=== PATIENT | female | born 1930 | race Caucasian/White ===

== ENCOUNTER 2018-03-29 10:58 | Inpatient (IN) ==
--- NOTE | 2018-03-29 11:28 | Emergency Department Note ---
Disposition Clinical Impression: Heart murmur, Hypoxia CHF (congestive heart failure) Qualifiers: Heart failure type: unspecified Heart failure chronicity: unspecified Qualified Code(s): I50.9 - Heart failure, unspecified Disposition: Admitted As Inpatient Condition: Fair Forms: ED Satisfaction Letter General Adult HPI - General Chief complaint: ED Shortness of Breath/Dyspnea Stated complaint: SOB Time Seen by Provider: 03/29/18 11:02 Source: patient Mode of arrival: ambulatory Limitations: no limitations Nursing Notes Reviewed: Yes Vital Signs Reviewed: Yes - History of Present Illness HPI Narrative: Patient presents today via EMS from PCP office with a past medical history of atrial fibrillation on Coumadin as well as hypertension. The patient had a syncopal event yesterday during her birthday republican. The patient has had a cough as well as shortness of breatH. She has been treated for the last month for a left upper lobe pneumonia. She has been on azithromycin and finished this antibiotic approximately 10 days ago. The patient states that her INR did change secondary to the levels but is unsure how much. The patient has a mixed clinical picture at this time as she does have Rales with associated hypoxia 75 % PCP office. Patient does not have any significant swelling in her legs orthopnea. She has not had fevers. She has not had productive cough. Patient does have a significant heart murmur best described as a systolic heart murmur that is +4 best heard at the aortic post. Patient will undergo further evaluation for dyspnea including both pneumonia with a lactate and blood cultures as well as possible CHF. Patient is receiving a head CT secondary to fall and mild ecchymosis on the forehead. She has not had any abdominal symptoms, nausea, vomiting, change in appetite. She is requiring 2 L nasal cannula to keep her oxygen at 90%. She will be admitted for further evaluation of dyspnea as well as syncope. - Related Data Home Medications Medication Instructions Recorded Confirmed Ascorbic Acid [Vitamin C with Danielle 500 mg PO DAILY 03/29/18 03/29/18 Hips] Aspirin [Lo-Dose Aspirin EC] 81 mg PO DAILY 03/29/18 03/29/18 Calcium Carbonate/Vitamin D3 1 tab PO BID 03/29/18 03/29/18 [Calcium 600-Vit D3 400 Tablet] Esomeprazole Magnesium [Nexium] 40 mg PO DAILY 03/29/18 03/29/18 Losartan [Cozaar] 25 mg PO DAILY 03/29/18 03/29/18 Metoprolol Tartrate [Metoprolol 25 mg PO BID 03/29/18 03/29/18 Tartrate] Multivit-Min/FA/Lycopen/Lutein [A 1 tab PO DAILY 03/29/18 03/29/18 Thru Z Select Multivit Tab] Nitroglycerin 0.3 mg SL Q5MIN PRN 03/29/18 03/29/18 Ondansetron [Zofran] 8 mg PO TID 03/29/18 03/29/18 Pramipexole [Mirapex] 0.5 mg PO HS 03/29/18 03/29/18 Warfarin Sodium [Warfarin Sodium] 1 mg PO MOTUWETH 03/29/18 03/29/18 Warfarin Sodium [Warfarin Sodium] 2.5 mg PO SUFRSA 03/29/18 03/29/18 amLODIPine [Norvasc] 5 mg PO DAILY 03/29/18 03/29/18 Allergies Allergy/AdvReac Type Severity Reaction Status Date / Time benzocaine Allergy Difficulty Verified 03/29/18 12:34 Breathing Procaine [From Novocain] Allergy Difficulty Verified 03/29/18 12:35 Breathing Review of Systems: Constitutional: No fever, chills, weight loss Vision: No blurred vision ENT: No rhinorrhea Cardiac: Syncope, denies chest pain Respiratory: Hypoxia with associated dyspnea and cough without productive sputum Allergic: No allergies : No blood in urine GI: No blood in stool Hematologic: No bruising Dermatologic: Ecchymosis to right forehead from fall Musculoskeletal: No pain in the extremities Neuro: Syncope, denies headache. No numbness of the extremities Past Medical History - Past Medical History Medical history: Reports: atrial fibrillation, hypertension, myocardial infarction, osteoporosis, renal disease, other Psychiatric history: Reports: no psych history - Social History Smoking Status: Never smoker Smokeless Tobacco Status: No Alcohol use: Reports: none Drug use: Reports: none Physical Exam General: Well appearing, nontoxic, no acute distress Head: Normocephalic Atraumatic Eyes: PERRL, EOMI ENT: Airway patent, no stridor Neck: supple, no meningismus Chest: Diffuse rales Cardiac: Irregular rate and rhythm with significant heart murmur at the aortic post that is 4 out of 6. Abdomen: soft, nontender, nondistended; no guarding, rebound, or tenderness to percussion Musculoskeletal: Calves symmetric, nontender, no palpable cord Skin: Mild ecchymosis to right forehead- Neuro: Alert and Oriented to person, place, and time; No focal deficit, CN 2-12 symmetric and intact Course - Reevaluation(s) Reevaluation #1: A rapid response was called and patient was she was in CAT scan. Patient's oxygen canister ran out she had an episode of syncopal. The patient had responded after being placed on oxygen. On my evaluation in the CAT scan room she is awake alert and oriented 3 and back to baseline. Reevaluation #2: Patient reevaluated bedside, she is sleepy but wakes up to physical stimulation and is able to tell me her name and where she is at. Family is at bedside and states that she has been sleeping like this a lot. The patient has not been sleeping very well at night which is likely secondary to her hypoxia. Her blood work does not show any significant changes from baseline, there is no elevated white count, there is no acute kidney injury, her BNP is slightly elevated but there is no baseline to compare to. Patient does have the significant heart murmur at the aortic post in combination with the syncope. The chest x-ray does not show any significant finding secondary to low lung volumes. There is no specific pneumothorax or redemonstration of pneumonia or effusion. Her images to previous the left lower lobe infiltrate does appear to have resolved but she does have concern for pulmonary vascular congestion. Dose of Lasix has been given within the emergency department. He dose of 20 mg IV for gentle diuresis given the heart murmur and no significant respiratory distress on 2 L. Vital Signs Temperature 97.7 F 03/29/18 11:09 Pulse Rate 57 03/29/18 11:09 Respiratory Rate 18 03/29/18 11:09 Blood Pressure 123/74 03/29/18 11:09 O2 Sat by Pulse Oximetry 98 03/29/18 11:09 Temperature 97.7 F 03/29/18 11:09 Pulse Rate 60 03/29/18 13:23 Respiratory Rate 14 03/29/18 13:23 Blood Pressure 115/44 03/29/18 13:23 O2 Sat by Pulse Oximetry 100 03/29/18 13:23 Oxygen Delivery Oxygen Delivery Nasal Cannula Medical Decision Making - Medical Records Medical records reviewed: Yes I reviewed the patient's medical records. - Lab Data Lab results reviewed: Yes I reviewed the patient's lab results. Result diagrams: 03/29/18 11:15 03/29/18 11:15 Lab Results 03/29/18 03/29/18 03/29/18 Range/Units 11:15 11:15 11:15 WBC 6.8 (4.3-11.1) K/mcL RBC 3.37 L (3.82-4.97) M/mcL Hgb 9.1 L (11.5-15.4) g/dL Hct 30.8 L (35.3-44.9) % MCV 91.4 (83.0-100.0) fL MCH 27.0 L (28.0-33.3) pg MCHC 29.5 L (31.6-35.5) g/dL RDW 17.3 H (11.5-14.5) % Plt Count 162 (140-400) K/mcL MPV 12.3 (9.4-12.4) fL Immature Gran % 0.4 (0-4) % Seg Neutrophils % 87.5 % Lymphocytes % 6.2 % Monocytes % 5.5 % Eosinophils % 0.4 % Basophils % 0.0 % Neutrophils # 5.9 (1.6-8.9) K/mcL Lymphocytes # 0.4 L (0.6-4.6) K/mcL Monocytes # 0.4 (0.0-1.3) K/mcL Eosinophils # 0.0 (0.0-0.6) K/mcL Basophils # 0.0 (0.0-0.2) K/mcL PT 37.8 H (9.4-12.1) Seconds INR 3.4 Sodium 138 (136-145) mEq/L Potassium 4.9 (3.5-5.1) mEq/L Chloride 109 H (98-107) mEq/L Carbon Dioxide 21 L (23-29) mEq/L BUN 41 H (8-23) mg/dL Creatinine 2.26 H (0.60-1.20) mg/dL Est GFR ( Amer) 25 L (> 60) Est GFR (Non-Af Amer) 20 L (> 60) BUN/Creatinine Ratio 18 (6-26) Glucose 116 H (70-105) mg/dL Calculated Osmolality 297 (280-300) Lactic Acid (0.5-2.2) mmol/L Calcium 9.2 (8.6-10.3) mg/dL Troponin I 0.03 (< 0.04) ng/mL B-Natriuretic Peptide (Less than 100) pg/mL 03/29/18 03/29/18 Range/Units 11:16 12:27 WBC (4.3-11.1) K/mcL RBC (3.82-4.97) M/mcL Hgb (11.5-15.4) g/dL Hct (35.3-44.9) % MCV (83.0-100.0) fL MCH (28.0-33.3) pg MCHC (31.6-35.5) g/dL RDW (11.5-14.5) % Plt Count (140-400) K/mcL MPV (9.4-12.4) fL Immature Gran % (0-4) % Seg Neutrophils % % Lymphocytes % % Monocytes % % Eosinophils % % Basophils % % Neutrophils # (1.6-8.9) K/mcL Lymphocytes # (0.6-4.6) K/mcL Monocytes # (0.0-1.3) K/mcL Eosinophils # (0.0-0.6) K/mcL Basophils # (0.0-0.2) K/mcL PT (9.4-12.1) Seconds INR Sodium (136-145) mEq/L Potassium (3.5-5.1) mEq/L Chloride (98-107) mEq/L Carbon Dioxide (23-29) mEq/L BUN (8-23) mg/dL Creatinine (0.60-1.20) mg/dL Est GFR ( Amer) (> 60) Est GFR (Non-Af Amer) (> 60) BUN/Creatinine Ratio (6-26) Glucose (70-105) mg/dL Calculated Osmolality (280-300) Lactic Acid 0.9 (0.5-2.2) mmol/L Calcium (8.6-10.3) mg/dL Troponin I (< 0.04) ng/mL B-Natriuretic Peptide 722 H (Less than 100) pg/mL - Radiology Data Radiology results reviewed: Yes I reviewed the patient's radiology results. - EKG Data EKG #1 EKG attestation: Yes I reviewed and interpreted this EKG. EKG results narrative: EKG shows atrial fibrillation with a heart rate of 52. QRS 89. QTC 398. Patient has no significant ST elevations or depressions. Patient does have nonspecific T-wave changes which are new in the inferior leads compared to previous however previous T-wave inversions have also now become more flat throughout the lateral leads. Previous EKG for comparison was 08/01/2009.
[2018-03-29 12:57] LABS: Eosinophils % 0.4 %; Hematocrit 30.8 % (35.3-44.9); Hemoglobin 9.1 g/dL (11.5-15.4); Immature Granulocytes % 0.4 % (0-4); Lymphocytes # 0.4 K/mcL (0.6-4.6); Lymphocytes % 6.2 %; Mean Corpuscular HGB Conc 29.5 g/dL (31.6-35.5); Mean Corpuscular Volume 91.4 fL (83.0-100.0); Mean Platelet Volume 12.3 fL (9.4-12.4); Monocytes # 0.4 K/mcL (0.0-1.3); Monocytes % 5.5 %; Neutrophils # 5.9 K/mcL (1.6-8.9); Platelet Count 162 K/mcL (140-400); Red Blood Count 3.37 M/mcL (3.82-4.97); Red Cell Distribution Width 17.3 % (11.5-14.5); Segmented Neutrophils % 87.5 %
[2018-03-29 13:05] LABS: INR 3.4; Prothrombin Time 37.8 Seconds (9.4-12.1)
[2018-03-29 13:18] LABS: Troponin I 0.03 ng/mL (< 0.04)
[2018-03-29 13:29] LABS: Calcium 9.2 mg/dL (8.6-10.3); Potassium 4.9 mEq/L (3.5-5.1)
[2018-03-29] MEDS ORDERED: Furosemide 40 MG/4 ML VIAL IVP ONE ×2 (13:56→21:00)
--- NOTE | 2018-03-29 15:10 | Electrocardiograph Report ---
[place] [id number] Test Date: 2018-03-29 Pat Name: [facility] Department: [id number] Room: 2A42 Gender: F [employer] Sales [employer]: : [id number] Requested By: [id number] Order Number: [id number] Reading MD: Ade Maldonado Measurements Intervals [place] Rate: 52 P: [place]: QRS: -9 QRSD: 89 T: 206 QT: 428 QTc: 398 Interpretive Statements Atrial fibrillation with slow ventricular response Nonspecific T abnormalities, diffuse leads Electronically Signed On 03-29-2018 15:09:03 EDT by Ade Maldonado
[2018-03-29] MEDS ORDERED: Furosemide Oral Soln 40 MG/4 ML UDC PO SCH (15:30)
[2018-03-29] MEDS ORDERED: Furosemide Oral Soln 40 MG/4 ML UDC PO ONE (15:30)
[2018-03-29] MEDS ORDERED: Naloxone 0.4 MG/ML INJ IVP PRN (16:14)
[2018-03-29] MEDS ORDERED: Ondansetron 4 MG/2 ML VIAL IVP PRN (16:41)
[2018-03-29] MEDS ORDERED: Warfarin perPT PO PRN (16:45)
--- NOTE | 2018-03-29 17:35 | Internal Med History&Physical ---
<Nahed Sanchez - Last Filed: 03/29/18 17:33> Date of Encounter: 03/29/18 Time of Encounter: 15:00 Internal Medicine - H&P: HPI Chief complaint: hypoxia, syncope History of present illness: Ms. Ordoñez is a 88 year old female with past medical history of A-fib on Coumadin, HTN, [place] in 2002, renal disease, and osteoporosis. The patient presents for hypoxia and syncope. The family states that the patient has been having episodes of difficulty breathing for 1 week that has progressively gotten worse. Reports the episodes are triggered by talking. The patient gasps for air, snores, and becomes incoherent with slurred speech for about 30 seconds. The patient will repeated say Im ok, Im ok in a slurred fashion and gradually becomes perfectly articulate again. Yesterday, patient had a syncopal episode witnessed by family at patients birthday republican. Patient stood up from a seated position to go to bathroom and lost consciousness for 30 seconds. She hit her head and nose. Today, at visit to PCP, she had another episode of gasping for air and nearly passed out. Pulse ox was 75% and the patient was transferred to the ER by EMS. In ER, patient was 90% on 2L oxygen. Other vital signs stable. While getting head CT for workup, patient had syncopal episode after oxygen canister ran out. Patient returned to normal after O2 administration. Patient was recently treated for REBECCA pneumonia with azithromycin for 5 days. Completed antibiotic course 10 days ago. Patient states shes tired and sleepy. Explains that she could not sleep last night. Family states shes still slurring her speech and that shes usually very articulate. Admits dry cough for few months that has stayed the same. Admits weakness for 1 month. Denies swelling. Denies orthopnea. Denies chest pain. Denies fever/ chills. Denies nausea/vomiting. Denies change in appetite. Past Med Surg Social Fam HX - Past Medical History Medical history: atrial fibrillation, hypertension, myocardial infarction, osteoporosis, renal disease, other Additional medical history: restless leg syndrome Psychiatric history: no psych history - Social History Smoking Status: Never smoker Smokeless Tobacco Status: No Alcohol use: none Drug use: none Internal Medicine - H&P: Meds Ascorbic Acid [Vitamin C with Danielle Hips] 500 mg PO DAILY 03/29/18 [History] Aspirin [Lo-Dose Aspirin EC] 81 mg PO DAILY 03/29/18 [History] Calcium Carbonate/Vitamin D3 [Calcium 600-Vit D3 400 Tablet] 1 tab PO BID [History] Esomeprazole Magnesium [Nexium] 40 mg PO DAILY 03/29/18 [History] Losartan [Cozaar] 25 mg PO DAILY 03/29/18 [History] Metoprolol Tartrate [Metoprolol Tartrate] 25 mg PO BID 03/29/18 [History] Multivit-Min/FA/Lycopen/Lutein [A Thru Z Select Multivit Tab] 1 tab PO DAILY 10/11 [History] Nitroglycerin 0.3 mg SL Q5MIN PRN 03/29/18 [History] Ondansetron [Zofran] 8 mg PO TID 03/29/18 [History] Pramipexole [Mirapex] 0.5 mg PO HS 03/29/18 [History] Warfarin Sodium [Warfarin Sodium] 1 mg PO MOTUWETH 03/29/18 [History] Warfarin Sodium [Warfarin Sodium] 2.5 mg PO SUFRSA 03/29/18 [History] amLODIPine [Norvasc] 5 mg PO DAILY 03/29/18 [History] 3 Allergy/AdvReac Type Severity Reaction Status Date / Time benzocaine Allergy Difficulty Verified 03/29/18 12:34 Breathing Procaine [From Novocain] Allergy Difficulty Verified 03/29/18 12:35 Breathing All Systems PM: A 10-system review of systems was performed and is negative for pertinent findings except as documented above in the HPI. - Constitutional Vitals: Temp Pulse Resp BP Pulse Ox 97.7 F 58 16 113/62 100 03/29/18 11:09 03/29/18 14:43 03/29/18 14:43 03/29/18 14:43 03/29/18 14:43 Exam: General: Normal body habitus. Sleepy. Alert and oriented x3. No acute distress. Head: Mild bruise on right forehead. Normocephalic. Eye: pupils equal, round, and reactive. Sclera anicteric. EOMI. ENT: Oral mucosa moist. Normal oropharynx. Airway patent. Neck: supple, trachea midline. Lungs: Diffuse rales. No rhonchi or wheezes. Shallow breathing. No respiratory distress. No accessory muscle use. Oxygen saturation 98% on 4L nasal cannula. Cardiovascular: Irregularly irregular. Systolic murmur. S1 & S2. No rubs or gallops. No JVD. Abdomen: Soft. Normal bowel sounds. Nondistended, no rigidity. Nontender. Extremities: No deformity, edema or tenderness. No joint swelling or clubbing. Skin: warm, dry, and intact. Neurological: No focal deficit. Internal Med - H&P Results - Labs CBC & Chem 7: 03/29/18 11:15 03/29/18 11:15 Labs: Cardiac Enzymes 03/29/18 Range/Units 16:36 Troponin I < 0.03 (< 0.04) ng/mL - Assessment and plan (1) Hypoxia Current Visit: Yes Status: Acute Assessment and plan: Unknown etiology. Considerations included new onset CHF, cardiomyopathy, myocardial infarction, infectious process, COPD, PE. WBC normal. Lactic acid normal. BNP elevated at 722. Troponin normal. Check serial troponins. EKG showed A-fib, heart rate 52. No signs of ischemia. CXR showed low lung volumes with enlarged heart. No focal infiltrate, no pleural effusion. Check Legionella and Strep pneumoniae urine antigens. Check respiratory infection panel. Check echo. Check V/Q scan. monitor car operator. DuoNebs q4h. On 4L O2 nasal cannula. Titrate down as tolerated. (2) Syncope Current Visit: Yes Status: Acute Assessment and plan: Secondary to hypoxia. Head CT showed no acute intracranial abnormality. Check orthostatics. See above. Qualifiers: Qualified Code(s): R55 - Syncope and collapse (3) Atrial fibrillation Current Visit: Yes Status: Chronic Assessment and plan: History of A-fib. Currently in A-fib, no RVR. On Coumadin and BB. Qualifiers: Qualified Code(s): I48.2 - Chronic atrial fibrillation (4) Hypertension Current Visit: Yes Status: Chronic Assessment and plan: Well-controlled on home meds. Qualifiers: Qualified Code(s): I10 - Essential (primary) hypertension - Time Spent With Patient Total time spent is greater than 50% in coordination of care (as documented) at patient's floor/unit and/or counseling patient: <Isa Morfin - Last Filed: 03/29/18 17:51> Date of Encounter: 03/29/18 Internal Medicine - H&P: HPI History of present illness: Ms. Ordoñez is a 88 year old female All Systems PM: A 10-system review of systems was performed and is negative for pertinent findings except as documented above in the HPI. - Constitutional Vitals: Temp Pulse Resp BP Pulse Ox 97.7 F 58 16 113/62 100 03/29/18 11:09 03/29/18 14:43 03/29/18 14:43 03/29/18 14:43 03/29/18 14:43 Internal Med - H&P Results - Labs CBC & Chem 7: 03/29/18 11:15 03/29/18 11:15 Labs: Cardiac Enzymes 03/29/18 Range/Units 16:36 Troponin I < 0.03 (< 0.04) ng/mL - Assessment and plan (1) Hypoxia Current Visit: Yes Status: Acute (2) Syncope Current Visit: Yes Status: Acute Qualifiers: Qualified Code(s): R55 - Syncope and collapse (3) Atrial fibrillation Current Visit: Yes Status: Chronic Qualifiers: Qualified Code(s): I48.2 - Chronic atrial fibrillation (4) Hypertension Current Visit: Yes Status: Chronic Qualifiers: Qualified Code(s): I10 - Essential (primary) hypertension - Time Spent With Patient Total time spent is greater than 50% in coordination of care (as documented) at patient's floor/unit and/or counseling patient: - Attending Attestation I examined this patient and my medical decision-making was reviewed with the Resident Physician Dr. Sanchez. I agree with the documented findings, disposition and treatment plan as described except to the extent set forth below. Ms. Ordoñez is a 88 year old female with past medical history of A-fib on Coumadin, HTN, [place] in 2002, CKD-3, and osteoporosis pt had syncoap episode at rest y/d , she went to see her PCP today there she found to have hypoxic and sent to ER for further work up. Pt did mention some orthopnea, FRANCO symptoms from past one month. She also had cough with some URI symptoms a week ago. Pt had seen her PCP who started her on Rocephin + Azithromycin. Now she denied any cough with expectoration. Gen: A, A, O x 3 Chest Diminished BS b/l Heart: S1S2 + Afib a/p 1. Syncope Need to r/o ACS vs Arrythamias on tele check serial trop concenring for .. will get 2 D Echo in AM 2. Acute hypoxia 3. Acute CHF exacerbation concerning for mild CHF exacerbation gentle diuresis check 2 D Echo in AM 4. Recent Pneumonia /URI check Strep PNA, Legionella and Resp Inf panel No need of abx now CXr did not show any infiltrates
[2018-03-29] MEDS: Ipratropium/Albuterol Neb 3 ML IH SCH ×2 (20:05→23:30)
[2018-03-29] MEDS ORDERED: CALCIUM VIT D3 PO SCH (21:00)
[2018-03-29] MEDS ORDERED: Furosemide 20 MG/2 ML VIAL IVP SCH (21:00)
[2018-03-29] MEDS: Ondansetron ODT 4 MG TAB.RAPDIS PO SCH (22:25)
[2018-03-30 00:26] LABS: Adenovirus Not Detected (Not Detect); Bordetella Pertussis Not Detected (Not Detect); Chlamydophila pneumoniae Not Detected (Not Detect); Coronavirus 229E Not Detected (Not Detect); Coronavirus HKU1 Not Detected (Not Detect); Coronavirus NL63 Not Detected (Not Detect); Coronavirus OC43 Not Detected (Not Detect); Human Metapneumovirus Not Detected (Not Detect); Human Rhinovirus/Enterovirus Not Detected (Not Detect); Influenza A Subtype 2009 H1 Not Detected (Not Detect); Influenza A Untypeable Not Detected (Not Detect); Influenza B Not Detected (Not Detect); Mycoplasma pneumoniae Not Detected (Not Detect); Parainfluenza Virus 1 Not Detected (Not Detect); Parainfluenza Virus 2 Not Detected (Not Detect); Parainfluenza Virus 3 Not Detected (Not Detect); Parainfluenza Virus 4 Not Detected (Not Detect); Respiratory Syncytial Virus Not Detected (Not Detect)
[2018-03-30] MEDS: Ipratropium/Albuterol Neb 3 ML IH SCH ×5 (04:05→19:35)
[2018-03-30 05:40] LABS: Hematocrit 28.6 % (35.3-44.9); Hemoglobin 8.4 g/dL (11.5-15.4); Mean Corpuscular HGB Conc 29.4 g/dL (31.6-35.5); Mean Corpuscular Hemoglobin 27.2 pg (28.0-33.3); Mean Corpuscular Volume 92.6 fL (83.0-100.0); Mean Platelet Volume 12.7 fL (9.4-12.4); Platelet Count 147 K/mcL (140-400); Red Blood Count 3.09 M/mcL (3.82-4.97); Red Cell Distribution Width 17.2 % (11.5-14.5)
[2018-03-30 05:56] LABS: Calcium 8.9 mg/dL (8.6-10.3); Magnesium 1.9 mg/dL (1.6-2.6); Potassium 5.1 mEq/L (3.5-5.1)
[2018-03-30] MEDS: Multivit/Ca/Min/Fe/FA 1 TAB TABLET PO SCH (07:34)
[2018-03-30] MEDS: Aspirin Enteric Coated 81 MG Tablet PO SCH (07:34)
[2018-03-30] MEDS: amLODIPine 5 MG TABLET PO SCH (07:35)
[2018-03-30] MEDS: Ondansetron ODT 4 MG TAB.RAPDIS PO SCH (07:35)
[2018-03-30] MEDS: Ascorbic Acid 500 MG TABLET PO SCH (07:35)
[2018-03-30] MEDS: Acetaminophen 325 MG TABLET PO PRN ×2 (07:42→14:27)
[2018-03-30] MEDS: Cholecalciferol (D-3) 1,000 UNIT TABLET PO SCH (08:52)
[2018-03-30] MEDS ORDERED: Ondansetron ODT 4 MG TAB.RAPDIS PO PRN (09:40)
--- NOTE | 2018-03-30 10:05 | Internal Med Progress Note ---
<Nahed Sanchez - Last Filed: 03/30/18 11:40> Hospitalist Progress Note - Encounter Date of Encounter: 03/30/18 Time of Encounter: 09:30 - Subjective Interval History: Patient seen and examined. No acute events overnight. Patient is sleeping comfortably in chair. Has had no episodes of gasping for breath or syncope since admission last night. Admits shortness of breath that is improved. Admits dry cough that is improved. Reports left ankle pain and swelling. States she must have twisted it when she fell the other day. States she has been walking on it since. Denies slurred speech. Denies chest pain. Denies sore throat. Denies fever/chills. Denies abdominal pain, nausea/vomiting, diarrhea/ constipation. - Exam Vitals: Temp Pulse Resp BP Pulse Ox 97.7 F 79 18 126/73 100 03/30/18 08:00 03/30/18 08:00 03/30/18 08:00 03/30/18 08:00 03/30/18 08:00 Exam: General: Normal body habitus. Sleepy. Alert and oriented x3. No acute distress. Head: Mild bruise on right forehead. Normocephalic. Eye: pupils equal, round, and reactive. Sclera anicteric. EOMI. ENT: Oral mucosa moist. Normal oropharynx. Airway patent. Neck: supple, trachea midline. Lungs: CTAB. No rhonchi, rales or wheezes. Shallow breathing. No respiratory distress. No accessory muscle use. Oxygen saturation 95% on 2L nasal cannula. Cardiovascular: Irregularly irregular. S1 & S2. No rubs or gallops. No JVD. Abdomen: Soft. Normal bowel sounds. Nondistended, no rigidity. Nontender. Extremities: Left lateral ankle swelling and bruising. Pain with palpation. Pain with anterior and posterior ankle drawer tests, no laxity. Neurovascularly intact. No deformity, edema or tenderness. No joint swelling or clubbing. Skin: warm, dry, and intact. Neurological: No focal deficit. - Assessment and Plan (1) Hypoxia Current Visit: Yes Status: Acute Assessment and Plan: On admission, required 4L O2 nasal cannula. Unknown etiology. Considerations included new onset CHF, cardiomyopathy, myocardial infarction, infectious process, COPD, PE. WBC normal. Lactic acid normal. BNP elevated at 722. Serial troponins negative. Legionella and Strep pneumoniae urine antigens are negative. Respiratory infection panel are negative. EKG showed A-fib, heart rate 52. No signs of ischemia. CXR showed low lung volumes with enlarged heart. No focal infiltrate, no pleural effusion. Echo pending. Check V/Q scan. surveillance system monitor. DuoNebs q4h. Improved. Today, on 2L O2 nasal cannula. Titrate down as tolerated. (2) Syncope Current Visit: Yes Status: Acute Assessment and Plan: Secondary to hypoxia. Head CT showed no acute intracranial abnormality. Check orthostatics. See above. (3) Acute exacerbation of CHF (congestive heart failure) Current Visit: Yes Status: Suspected Assessment and Plan: Concerning for mild CHF exacerbation No previous history of CHF. BNP elevated at 722. Gentle diuresis on admission. Echo pending. (4) Atrial fibrillation Current Visit: Yes Status: Chronic Assessment and Plan: History of A-fib. Currently in A-fib, no RVR. On Coumadin and BB. (5) Hypertension Current Visit: Yes Status: Chronic Assessment and Plan: Well-controlled on home meds. (6) History of recent pneumonia Current Visit: Yes Status: Acute Assessment and Plan: Legionella and Strep pneumoniae urine antigens are negative. Respiratory infection panel are negative. CXR showed low lung volumes with enlarged heart. No focal infiltrate, no pleural effusion. Will not administer antibiotics at this time. DVT Prophylaxis: On coumadin. - Time Spent with Patient Total time spent is greater than 50% in coordination of care (as documented) at patient's floor/unit and/or counseling patient: Internal Medicine: Result - Labs CBC & Chem 7: 03/30/18 04:35 03/30/18 04:35 Labs: Short CBC 03/30/18 Range/Units 04:35 WBC 4.9 (4.3-11.1) K/mcL Hgb 8.4 L (11.5-15.4) g/dL Hct 28.6 L (35.3-44.9) % Plt Count 147 (140-400) K/mcL BMP 03/30/18 04:35 Sodium 139 Potassium 5.1 Chloride 108 H Carbon Dioxide 23 BUN 43 H Creatinine 2.51 H Glucose 81 Calcium 8.9 Cardiac Enzymes 03/29/18 03/29/18 03/30/18 Range/Units 16:36 22:22 04:35 Troponin I < 0.03 0.03 < 0.03 (< 0.04) ng/mL - ABG Interpretation ABG results: PT/INR, D-dimer PT 34.0 Seconds (9.4-12.1) H 03/30/18 04:35 Consult Discharge Plan - Plan Referrals: Chele Goode MD [Primary Care Provider] - <NavjotIsa - Last Filed: 03/30/18 14:00> Hospitalist Progress Note - Encounter Date of Encounter: 03/30/18 - Exam Vitals: Temp Pulse Resp BP Pulse Ox 97.7 F 79 18 126/73 100 03/30/18 08:00 03/30/18 08:00 03/30/18 08:00 03/30/18 08:00 03/30/18 08:00 - Assessment and Plan (1) Hypoxia Current Visit: Yes Status: Acute (2) Syncope Current Visit: Yes Status: Acute (3) Atrial fibrillation Current Visit: Yes Status: Chronic (4) Hypertension Current Visit: Yes Status: Chronic (5) Acute exacerbation of CHF (congestive heart failure) Current Visit: Yes Status: Suspected (6) History of recent pneumonia Current Visit: Yes Status: Acute - Time Spent with Patient Total time spent is greater than 50% in coordination of care (as documented) at patient's floor/unit and/or counseling patient: Internal Medicine: Result - Labs CBC & Chem 7: 03/30/18 04:35 03/30/18 04:35 Labs: Short CBC 03/30/18 Range/Units 04:35 WBC 4.9 (4.3-11.1) K/mcL Hgb 8.4 L (11.5-15.4) g/dL Hct 28.6 L (35.3-44.9) % Plt Count 147 (140-400) K/mcL BMP 03/30/18 04:35 Sodium 139 Potassium 5.1 Chloride 108 H Carbon Dioxide 23 BUN 43 H Creatinine 2.51 H Glucose 81 Calcium 8.9 Cardiac Enzymes 03/29/18 03/29/18 03/30/18 Range/Units 16:36 22:22 04:35 Troponin I < 0.03 0.03 < 0.03 (< 0.04) ng/mL - ABG Interpretation ABG results: PT/INR, D-dimer PT 34.0 Seconds (9.4-12.1) H 03/30/18 04:35 - Impressions Impressions Pulmonary Perfusion Imaging 03/30/18 09:47 IMPRESSION: Low probability for pulmonary embolus. D/ / Christopher Hamlin MD / Christopher Hamlin MD Interpreting Provider: Christopher Hamlin MD - Attending Attestation I examined this patient and my medical decision-making was reviewed with the Resident Physician Dr. Sanchez. I agree with the documented findings, disposition and treatment plan as described except to the extent set forth below. Ms. Ordoñez is a 88 year old female with past medical history of A-fib on Coumadin, HTN, [place] in 2002, CKD-3, and osteoporosis pt had syncoap episode at rest y/d , she went to see her PCP today there she found to have hypoxic and sent to ER for further work up. Pt did mention some orthopnea, FRANCO symptoms from past one month. She also had cough with some URI symptoms a week ago. Pt had seen her PCP who started her on Rocephin + Azithromycin. Now she denied any cough with expectoration. Pt states she is feeling better today. c/o left ankle pain Gen: A, A, O x 3 Chest Diminished BS b/l Heart: S1S2 + Afib Ext: Left ankle swelling a/p 1. Syncope Need to r/o ACS vs Arrythamias on tele so far negative trop no ischemic changes on EKG 2. Acute hypoxia V/Q scan came back as low probability for PE 3. Acute CHF exacerbation concerning for mild CHF exacerbation Received 2 doses IV Laisx.. Cr went up held diuretics 2 D Echo - P 4. Recent Pneumonia /URI Strep PNA, Legionella and Resp Inf panel - Negative No need of abx now CXR did not show any infiltrates
[2018-03-30] MEDS ORDERED: *HR* Warfarin 2.5 MG TABLET PO SCH (16:34)
[2018-03-30] MEDS ORDERED: Warfarin perPT PO PRN (18:00)
[2018-03-30] MEDS ORDERED: *HR* Warfarin 1 MG TABLET PO ONE (18:00)
[2018-03-31] MEDS: Ipratropium/Albuterol Neb 3 ML IH SCH ×6 (00:04→20:22)
[2018-03-31] MEDS: Acetaminophen 325 MG TABLET PO PRN (05:39)
[2018-03-31 05:44] LABS: Hematocrit 27.8 % (35.3-44.9); Hemoglobin 8.2 g/dL (11.5-15.4); Mean Corpuscular HGB Conc 29.5 g/dL (31.6-35.5); Mean Corpuscular Hemoglobin 27.1 pg (28.0-33.3); Mean Corpuscular Volume 91.7 fL (83.0-100.0); Mean Platelet Volume 12.2 fL (9.4-12.4); Platelet Count 132 K/mcL (140-400); Red Blood Count 3.03 M/mcL (3.82-4.97); Red Cell Distribution Width 16.9 % (11.5-14.5)
[2018-03-31 05:49] LABS: INR 2.4; Prothrombin Time 26.7 Seconds (9.4-12.1)
[2018-03-31 06:08] LABS: Calcium 8.6 mg/dL (8.6-10.3); Potassium 4.8 mEq/L (3.5-5.1)
[2018-03-31] MEDS: Cholecalciferol (D-3) 1,000 UNIT TABLET PO SCH (09:45)
[2018-03-31] MEDS: Ascorbic Acid 500 MG TABLET PO SCH (09:45)
[2018-03-31] MEDS: Aspirin Enteric Coated 81 MG Tablet PO SCH (09:45)
[2018-03-31] MEDS: Multivit/Ca/Min/Fe/FA 1 TAB TABLET PO SCH (09:45)
[2018-03-31] MEDS: amLODIPine 5 MG TABLET PO SCH (09:45)
--- NOTE | 2018-03-31 11:57 | Internal Med Progress Note ---
Hospitalist Progress Note - Encounter Date of Encounter: 03/31/18 Time of Encounter: 10:30 - Subjective Interval History: Ms. Ordoñez is a 88 year old female with past medical history of A-fib on Coumadin, HTN, [place] in 2002, CKD-3, and osteoporosis pt had syncoap episode at rest y/d , she went to see her PCP today there she found to have hypoxic and sent to ER for further work up. Pt did mention some orthopnea, FRANCO symptoms from past one month. She also had cough with some URI symptoms a week ago. Pt had seen her PCP who started her on Rocephin + Azithromycin. Now she denied any cough with expectoration. She was admitted in the hospital and started her on IV Lasix 40 mg. Patient stated her symptoms improved. Today she complained about nasal congestion and running nose. Her ankle pain also improved - Exam Vitals: Temp Pulse Resp BP Pulse Ox 98 F 67 16 120/59 96 03/31/18 10:45 03/31/18 10:45 03/31/18 11:32 03/31/18 10:45 03/31/18 11:32 Exam: Gen: Alert, awake, Oriented to time,place and person Chest: Diminished breath sounds B/L, No wheezing, No crackles, No rales Heart: S1S2+ RRR No murmurs Abd: Soft, NT, BS +, No organomegaly Ext: No edema, pulses are palpable, No calf tenderness Neuro : Benign findings Skin: No rash. - Assessment and Plan (1) Acute exacerbation of CHF (congestive heart failure) Current Visit: Yes Status: Suspected Assessment and Plan: Concerning for mild diastolic CHF exacerbation reviewed echo which showed preserved LVEF and mild diastolic dysfunction held Lasix due to LIZETH withCKD-3 cont asa, statin and BB (2) Hypoxia Current Visit: Yes Status: Acute Assessment and Plan: Unclear etiology could be due to mild diastolic CHF exacerbation as well as deconditioning on 2 lit oxygen V/Q scan came back is low probability for PE chest x-ray did not show any infiltrates (3) Syncope Current Visit: Yes Status: Acute Assessment and Plan: Most likely vasovagal and ortho stat improved so far negative cardiac work up (4) Atrial fibrillation Current Visit: Yes Status: Chronic Assessment and Plan: History of chronic A-fib. Currently in A-fib, no RVR. Rate controlled with beta syd On Coumadin for anticoagulation (5) Hypertension Current Visit: Yes Status: Chronic Assessment and Plan: Well-controlled on home meds. (6) History of recent pneumonia Current Visit: Yes Status: Acute Assessment and Plan: Legionella and Strep pneumoniae urine antigens are negative. Respiratory infection panel are negative. CXR showed low lung volumes with enlarged heart. No focal infiltrate, no pleural effusion. (7) UTI (urinary tract infection) Current Visit: Yes Status: Acute Assessment and Plan: Urine culture came back as gram-positive cocci started on antibiotic Rocephin (8) Ankle pain Current Visit: Yes Status: Acute Assessment and Plan: Reviewed x-ray of the left ankle negative for any fracture - Time Spent with Patient Total time spent is greater than 50% in coordination of care (as documented) at patient's floor/unit and/or counseling patient: Internal Medicine: Result - Labs CBC & Chem 7: 03/31/18 05:12 03/31/18 05:12 Labs: Short CBC 03/31/18 Range/Units 05:12 WBC 4.7 (4.3-11.1) K/mcL Hgb 8.2 L (11.5-15.4) g/dL Hct 27.8 L (35.3-44.9) % Plt Count 132 L (140-400) K/mcL BMP 03/31/18 05:12 Sodium 135 L Potassium 4.8 Chloride 104 Carbon Dioxide 24 BUN 46 H Creatinine 2.93 H Glucose 101 Calcium 8.6 - ABG Interpretation ABG results: PT/INR, D-dimer PT 26.7 Seconds (9.4-12.1) H 03/31/18 05:12 - Impressions Impressions Echocardiogram 03/30/18 09:47 Impressions: LVEF 60%. Normal LV chamber size, wall thickness and function. Indeterminate diastolic function. Mildly dilated and hypokinetic right ventricle. Mild aortic regurgitation. Mild aortic sclerosis suggested by Doppler. Mean gradient 8 mmHg. Mild mitral regurgitation. Mild tricuspid regurgitation. Pulmonary Perfusion Imaging 03/30/18 09:47 IMPRESSION: Low probability for pulmonary embolus. D/ / Christopher Hamlin MD / Christopher Hamlin MD Interpreting Provider: Christopher Hamlin MD Ankle X-Ray 03/30/18 09:50 IMPRESSION: No acute abnormality of the ankle. D/ / Christopher Hamlin MD / Christopher Hamlin MD Interpreting Provider: Christopher Hamlin MD Consult Discharge Plan - Plan Referrals: Chele Goode MD [Primary Care Provider] - (8) Ankle pain Qualifiers: Laterality: left
[2018-03-31] MEDS: cefTRIAXone 1,000 MG in Water for inj. (sterile) 20 ML 10 ML IVP SCH (12:33)
[2018-03-31] MEDS: Fluticasone Propionate Nasal 50 MCG/SPRAY BOTTLE NS SCH (13:26)
[2018-03-31] MEDS ORDERED: *HR* Warfarin 1 MG TABLET PO ONE (18:00)
[2018-03-31] MEDS ORDERED: *HR* Warfarin 2.5 MG TABLET PO ONE (18:00)
[2018-04-01] MEDS: Ipratropium/Albuterol Neb 3 ML IH SCH ×7 (00:13→23:41)
[2018-04-01] MEDS: Acetaminophen 325 MG TABLET PO PRN (05:33)
[2018-04-01 07:25] LABS: Prothrombin Time 22.5 Seconds (9.4-12.1)
[2018-04-01 07:35] LABS: Calcium 8.6 mg/dL (8.6-10.3); Potassium 4.9 mEq/L (3.5-5.1)
[2018-04-01] MEDS: Multivit/Ca/Min/Fe/FA 1 TAB TABLET PO SCH (08:15)
[2018-04-01] MEDS: Ascorbic Acid 500 MG TABLET PO SCH (08:15)
[2018-04-01] MEDS: Cholecalciferol (D-3) 1,000 UNIT TABLET PO SCH (08:15)
[2018-04-01] MEDS: amLODIPine 5 MG TABLET PO SCH (08:15)
[2018-04-01] MEDS: Aspirin Enteric Coated 81 MG Tablet PO SCH (08:16)
[2018-04-01] MEDS: Fluticasone Propionate Nasal 50 MCG/SPRAY BOTTLE NS SCH (08:17)
[2018-04-01] MEDS: cefTRIAXone 1,000 MG in Water for inj. (sterile) 20 ML 10 ML IVP SCH (08:17)
[2018-04-01] MEDS: Amoxicillin 500 MG CAPSULE PO SCH ×2 (11:25→20:24)
--- NOTE | 2018-04-01 13:17 | Internal Med Progress Note ---
Hospitalist Progress Note - Encounter Date of Encounter: 04/01/18 Time of Encounter: 10:00 - Subjective Interval History: Ms. Ordoñez is a 88 year old female with past medical history of A-fib on Coumadin, HTN, [place] in 2002, CKD-3, and osteoporosis pt had syncoap episode at rest y/d , she went to see her PCP today there she found to have hypoxic and sent to ER for further work up. Pt did mention some orthopnea, FRANCO symptoms from past one month. She also had cough with some URI symptoms a week ago. Pt had seen her PCP who started her on Rocephin + Azithromycin. Now she denied any cough with expectoration. She was admitted in the hospital and started her on IV Lasix 40 mg x 2 doses. Patient stated her symptoms improved. She denied any CP / SOB. Still on 2 lit O2. Her ankle pain also improved - Exam Vitals: Temp Pulse Resp BP Pulse Ox 98.3 F 77 18 136/69 98 04/01/18 12:06 04/01/18 12:06 04/01/18 12:06 04/01/18 12:06 04/01/18 12:06 Exam: Gen: Alert, awake, Oriented to time,place and person Chest: Diminished breath sounds B/L, No wheezing, No crackles, No rales Heart: S1S2+ RRR No murmurs Abd: Soft, NT, BS +, No organomegaly Ext: No edema, pulses are palpable, No calf tenderness..Mild tenderness in Left ankle Neuro : Benign findings Skin: No rash. - Assessment and Plan (1) Acute exacerbation of CHF (congestive heart failure) Current Visit: Yes Status: Suspected Assessment and Plan: Concerning for mild diastolic CHF exacerbation reviewed echo which showed preserved LVEF and mild diastolic dysfunction held Lasix due to LIZETH withCKD-3 cont asa, statin and BB (2) Hypoxia Current Visit: Yes Status: Acute Assessment and Plan: Unclear etiology could be due to mild diastolic CHF exacerbation as well as deconditioning on 2 lit oxygen will try to wean her off the O2 as she tolerates V/Q scan came back is low probability for PE chest x-ray did not show any infiltrates (3) Syncope Current Visit: Yes Status: Acute Assessment and Plan: Most likely vasovagal and ortho stat improved so far negative cardiac work up (4) Atrial fibrillation Current Visit: Yes Status: Chronic Assessment and Plan: History of chronic A-fib. Currently in A-fib, no RVR. Rate controlled with beta syd On Coumadin for anticoagulation (5) Hypertension Current Visit: Yes Status: Chronic Assessment and Plan: Well-controlled on home meds. (6) History of recent pneumonia Current Visit: Yes Status: Acute Assessment and Plan: Legionella and Strep pneumoniae urine antigens are negative. Respiratory infection panel are negative. CXR showed low lung volumes with enlarged heart. No focal infiltrate, no pleural effusion. (7) UTI (urinary tract infection) Current Visit: Yes Status: Acute Assessment and Plan: Urine culture growing Enterococcus avium Switched abx to PO Amoxicillin (8) Ankle pain Current Visit: Yes Status: Acute Assessment and Plan: Reviewed x-ray of the left ankle negative for any fracture PT / OT eval she does have mild ankle sprain cont supportive and symptomatic care - RICE - Time Spent with Patient Total time spent is greater than 50% in coordination of care (as documented) at patient's floor/unit and/or counseling patient: Internal Medicine: Result - Labs CBC & Chem 7: 03/31/18 05:12 04/01/18 06:46 Labs: BMP 04/01/18 06:46 Sodium 132 L Potassium 4.9 Chloride 102 Carbon Dioxide 24 BUN 43 H Creatinine 2.76 H Glucose 95 Calcium 8.6 - ABG Interpretation ABG results: PT/INR, D-dimer PT 22.5 Seconds (9.4-12.1) H 04/01/18 06:46 Consult Discharge Plan - Plan Referrals: Chele Goode MD [Primary Care Provider] - (8) Ankle pain Qualifiers: Laterality: left
[2018-04-01] MEDS ORDERED: *HR* Warfarin 2.5 MG TABLET PO ONE (18:00)
[2018-04-01] MEDS ORDERED: Artificial Tears SOLN 15 ML BOTTLE BOTH EYES PRN (18:12)
[2018-04-02] MEDS: Ipratropium/Albuterol Neb 3 ML IH SCH ×4 (04:05→15:38)
[2018-04-02] MEDS: Acetaminophen 325 MG TABLET PO PRN (05:23)
[2018-04-02 05:41] LABS: Prothrombin Time 22.9 Seconds (9.4-12.1)
[2018-04-02 05:55] LABS: Potassium 5.1 mEq/L (3.5-5.1)
[2018-04-02] MEDS: Multivit/Ca/Min/Fe/FA 1 TAB TABLET PO SCH (08:15)
[2018-04-02] MEDS: Ascorbic Acid 500 MG TABLET PO SCH (08:15)
[2018-04-02] MEDS: amLODIPine 5 MG TABLET PO SCH (08:15)
[2018-04-02] MEDS: Cholecalciferol (D-3) 1,000 UNIT TABLET PO SCH (08:15)
[2018-04-02] MEDS: Aspirin Enteric Coated 81 MG Tablet PO SCH (08:15)
[2018-04-02] MEDS: Amoxicillin 500 MG CAPSULE PO SCH (08:16)
[2018-04-02] MEDS: Fluticasone Propionate Nasal 50 MCG/SPRAY BOTTLE NS SCH (08:19)
--- NOTE | 2018-04-02 09:05 | Internal Med Progress Note ---
Hospitalist Progress Note - Encounter Date of Encounter: 04/02/18 Time of Encounter: 08:35 - Subjective Interval History: Patient seen and examined. No acute events overnight. Patient is resting comfortably in bed. States shortness of breath and cough are better. States ankle pain is better. Denies episodes of gasping for breath or syncope. Denies urinary symptoms. Denies chest pain. Denies sore throat. Denies fever/chills. Denies abdominal pain, nausea/vomiting, diarrhea/constipation. - Exam Vitals: Temp Pulse Resp BP Pulse Ox 97.7 F 82 17 152/68 95 04/02/18 06:37 04/02/18 06:37 04/02/18 07:30 04/02/18 06:37 04/02/18 07:30 Exam: General: Normal body habitus. Alert and oriented x3. No acute distress. Head: Atraumatic. Normocephalic. Eye: pupils equal, round, and reactive. Sclera anicteric. EOMI. ENT: Oral mucosa moist. Normal oropharynx. Airway patent. Neck: supple, trachea midline. Lungs: CTAB. No rhonchi, rales or wheezes. No respiratory distress. No accessory muscle use. Oxygen saturation 96% on 1.5L nasal cannula. Cardiovascular: Irregularly irregular. S1 & S2. Systolic murmur. No rubs or gallops. No JVD. Abdomen: Soft. Normal bowel sounds. Nondistended, no rigidity. Nontender. Extremities: Left lateral ankle bruising. No swelling. Neurovascularly intact. Left lower extremity 1+ pitting edema. No edema in RLE. No deformity or tenderness. No joint swelling or clubbing. Skin: warm, dry, and intact. Neurological: No focal deficit. - Assessment and Plan (1) Hypoxia Current Visit: Yes Status: Acute (2) Syncope Current Visit: Yes Status: Acute (3) Atrial fibrillation Current Visit: Yes Status: Chronic (4) Hypertension Current Visit: Yes Status: Chronic (5) Acute exacerbation of CHF (congestive heart failure) Current Visit: Yes Status: Suspected (6) History of recent pneumonia Current Visit: Yes Status: Acute (7) UTI (urinary tract infection) Current Visit: Yes Status: Acute (8) Ankle pain Current Visit: Yes Status: Acute - Time Spent with Patient Total time spent is greater than 50% in coordination of care (as documented) at patient's floor/unit and/or counseling patient: Internal Medicine: Result - Labs CBC & Chem 7: 03/31/18 05:12 04/02/18 05:09 Labs: BMP 04/02/18 05:09 Sodium 134 L Potassium 5.1 Chloride 103 Carbon Dioxide 26 BUN 40 H Creatinine 2.42 H Glucose 94 Calcium 9.0 - ABG Interpretation ABG results: PT/INR, D-dimer PT 22.9 Seconds (9.4-12.1) H 04/02/18 05:09 Consult Discharge Plan - Plan Referrals: Chele Goode MD [Primary Care Provider] - (8) Ankle pain Qualifiers: Laterality: left
--- NOTE | 2018-04-02 11:54 | Discharge Summary ---
<Nahed Sanchez - Last Filed: 04/02/18 12:35> - NOTES TO OUTPATIENT PROVIDER Notes to Outpatient Provider: Started on Lasix. Patient needs followup BMP in 3 days. Date of Encounter: 04/02/18 Time of Encounter: 08:35 - Discharge Diagnosis (1) Hypoxia Priority: Primary Status: Acute (2) Syncope Priority: Primary Status: Acute Qualifiers: Qualified Code(s): R55 - Syncope and collapse (3) Atrial fibrillation Priority: Secondary Status: Chronic Qualifiers: Qualified Code(s): I48.2 - Chronic atrial fibrillation (4) Hypertension Priority: Secondary Status: Chronic Qualifiers: Qualified Code(s): I10 - Essential (primary) hypertension (5) Acute exacerbation of CHF (congestive heart failure) Priority: Primary Status: Suspected Qualifiers: Heart failure type: diastolic Qualified Code(s): I50.33 - Acute on chronic diastolic (congestive) heart failure (6) History of recent pneumonia Priority: Secondary Status: Acute (7) UTI (urinary tract infection) Priority: Primary Status: Acute Qualifiers: Qualified Code(s): N39.0 - Urinary tract infection, site not specified (8) Ankle pain Priority: Primary Status: Acute Qualifiers: Laterality: left Qualified Code(s): M25.572 - Pain in left ankle and joints of left foot Hospital course: Ms. Ordoñez is a 88 year old female with past medical history of A-fib on Coumadin, HTN, SC in 2002, renal disease, and osteoporosis. The patient presents for hypoxia and syncope. The family states that the patient has been having episodes of difficulty breathing for 1 week that has progressively gotten worse. Reports the episodes are triggered by talking. The patient gasps for air, snores, and becomes incoherent with slurred speech for about 30 seconds. The patient will repeated say Im ok, Im ok in a slurred fashion and gradually becomes perfectly articulate again. Patient had a syncopal episode witnessed by family at patients birthday alliance party. Patient stood up from a seated position to go to bathroom and lost consciousness for 30 seconds. She hit her head and nose. Next day, at visit to PCP, she had another episode of gasping for air and nearly passed out. Pulse ox was 75% and the patient was transferred to the ER by EMS. In ER, patient was 90 % on 2L oxygen. Other vital signs stable. While getting head CT for workup, patient had syncopal episode after oxygen canister ran out. Patient returned to normal after O2 administration. CBC and BMP were unremarkable. Serial troponins were negative. BNP was elevated at 722. EKG showed Afib without RVR, no signs of acute ischemia. CXR showed low lung volume with enlarged heart, no focal infiltrate, no pleural effusion. CT head was negative. Respiratory infection panel was negative. Legionella and Strep pneumoniae antigens were negative. VQ scan was negative. Echo showed LVEF 60% with mild RV dilation and hypokinesis. Ankle XR was negative for fracture. Patient was given 2 doses IV Lasix 40, duonebs, and placed on oxygen. Urine culture was positive for enterococcus avirum. Patient was started on rocephin and transitioned to amoxicillin. Hypoxia and dyspnea likely secondary to mild diastolic CHF exacerbation. Syncope likely secondary to vasovagal or orthostatics. Patients dyspnea and cough are improved. Had no episodes of gasping for breath or syncope since admission. Ankle pain is improved. No urinary symptoms. - Time Spent with Patient Total time spent providing and/or coordinating discharge services: Greater than 30 minutes (42 minutes) - Discharge Medications Prescriptions: Amoxicillin [Amoxil] 500 mg PO BID #5 capsule Furosemide [Lasix] 40 mg PO DAILY #30 tablet Home Medications: Ascorbic Acid [Vitamin C with Danielle Hips] 500 mg PO DAILY 03/29/18 [History] Aspirin [Lo-Dose Aspirin EC] 81 mg PO DAILY 03/29/18 [History] Calcium Carbonate/Vitamin D3 [Calcium 600-Vit D3 400 Tablet] 1 tab PO BID [History] Esomeprazole Magnesium [Nexium] 40 mg PO DAILY 03/29/18 [History] Losartan [Cozaar] 25 mg PO DAILY 03/29/18 [History] Metoprolol Tartrate 25 mg PO BID 03/29/18 [History] Multivit-Min/FA/Lycopen/Lutein [A Thru Z Select Multivit Tab] 1 tab PO DAILY 10/11 [History] Nitroglycerin 0.3 mg SL Q5MIN PRN 03/29/18 [History] Ondansetron [Zofran] 8 mg PO TID 03/29/18 [History] Pramipexole [Mirapex] 0.5 mg PO HS 10/04/18 [History] Warfarin Sodium 1 mg PO MOTUWETH 03/29/18 [History] Warfarin Sodium 2.5 mg PO SUFRSA 03/29/18 [History] amLODIPine [Norvasc] 5 mg PO DAILY 03/29/18 [History] Amoxicillin [Amoxil] 500 mg PO BID #5 capsule 04/02/18 [Rx] Furosemide [Lasix] 40 mg PO DAILY #30 tablet 04/02/18 [Rx] Allergies/Adverse Reactions: 3 Allergy/AdvReac Type Severity Reaction Status Date / Time benzocaine Allergy Difficulty Verified 03/29/18 12:34 Breathing Procaine [From Novocain] Allergy Difficulty Verified 03/29/18 12:35 Breathing Date of admission: 03/29/18 14:40 Primary care physician: Chele Goode MD Consults: 03/29/18 16:46 Consult to Nutrition [CONS] Routine Comment: Consulting Provider: NUTRITION Reason for Dietary Consult: MST Score 04/01/18 11:07 Consult to Physical Therapy [CONS] Routine Comment: Evaluate, develop and implement POC Reason for Consult: Physical deconditioning.. Fall Does patient have active BEDREST order?: No Is patient medically & hemodynamically stable?: Yes Patient assessed for mobility or mobilized this visit?: Yes OT [Consult to Occupational Therapy] [CONS] Routine Comment: Evaluate, develop and implement POC Reason for Consult: Physical deconditioning - Fall Does patient have active BEDREST order?: No Is patient medically & hemodynamically stable?: Yes Patient assessed for mobility or mobilized this visit?: Yes Discharging clinician: Nahed Sanchez Anticipated date of discharge: 04/02/18 - Constitutional Vitals: Temp Pulse Resp BP Pulse Ox 98 F 60 17 144/73 98 04/02/18 10:52 04/02/18 10:52 04/02/18 11:01 04/02/18 10:52 04/02/18 11:01 Exam: General: Normal body habitus. Alert and oriented x3. No acute distress. Head: Atraumatic. Normocephalic. Eye: pupils equal, round, and reactive. Sclera anicteric. EOMI. ENT: Oral mucosa moist. Normal oropharynx. Airway patent. Neck: supple, trachea midline. Lungs: CTAB. No rhonchi, rales or wheezes. No respiratory distress. No accessory muscle use. Oxygen saturation 96% on 1.5L nasal cannula. Cardiovascular: Irregularly irregular. S1 & S2. Systolic murmur. No rubs or gallops. No JVD. Abdomen: Soft. Normal bowel sounds. Nondistended, no rigidity. Nontender. Extremities: Left lateral ankle bruising. No swelling. Neurovascularly intact. Left lower extremity 1+ pitting edema. No edema in RLE. No deformity or tenderness. No joint swelling or clubbing. Skin: warm, dry, and intact. Neurological: No focal deficit. - Patient Status Disposition: Home, Self-Care Condition: Fair - Discharge Instructions Instructions: Urinary Tract Infection in Women (DC) Follow Up With: Tio Lan MD [Non-Partnered Physician] - 04/09/18 10:15 am - Diet and Activity Activity: increase activity as tolerated Diet: advance to your usual diet, low fat, low cholesterol, low salt diet <Isa Morfin - Last Filed: 04/02/18 17:43> Orders not resulted at time of discharge: Pending orders 04/03/18 04:00 Basic Metabolic Panel AM 0400 PT/INR [Prothrombin Time INR] [COAG] AM 0400 04/04/18 04:00 Basic Metabolic Panel AM 0400 PT/INR [Prothrombin Time INR] [COAG] AM 0400 04/05/18 04:00 PT/INR [Prothrombin Time INR] [COAG] AM 0400 04/06/18 04:00 PT/INR [Prothrombin Time INR] [COAG] AM 0400 04/07/18 04:00 PT/INR [Prothrombin Time INR] [COAG] AM 0400 Date of Encounter: 04/02/18 - Discharge Diagnosis (1) Hypoxia Status: Acute (2) Syncope Status: Acute Qualifiers: Qualified Code(s): R55 - Syncope and collapse (3) Atrial fibrillation Status: Chronic Qualifiers: Qualified Code(s): I48.2 - Chronic atrial fibrillation (4) Hypertension Status: Chronic Qualifiers: Qualified Code(s): I10 - Essential (primary) hypertension (5) Acute exacerbation of CHF (congestive heart failure) Status: Suspected Qualifiers: Heart failure type: diastolic Qualified Code(s): I50.33 - Acute on chronic diastolic (congestive) heart failure (6) History of recent pneumonia Status: Acute (7) UTI (urinary tract infection) Status: Acute Qualifiers: Qualified Code(s): N39.0 - Urinary tract infection, site not specified (8) Ankle pain Status: Acute Qualifiers: Laterality: left Qualified Code(s): M25.572 - Pain in left ankle and joints of left foot Hospital course: Ms. Ordoñez is a 88 year old female - Time Spent with Patient Total time spent providing and/or coordinating discharge services: Date of admission: 03/29/18 14:40 Primary care physician: Chele Goode MD Consults: 03/29/18 16:46 Consult to Nutrition [CONS] Routine Comment: Consulting Provider: NUTRITION Reason for Dietary Consult: MST Score 04/01/18 11:07 Consult to Physical Therapy [CONS] Routine Comment: Evaluate, develop and implement POC Reason for Consult: Physical deconditioning.. Fall Does patient have active BEDREST order?: No Is patient medically & hemodynamically stable?: Yes Patient assessed for mobility or mobilized this visit?: Yes OT [Consult to Occupational Therapy] [CONS] Routine Comment: Evaluate, develop and implement POC Reason for Consult: Physical deconditioning - Fall Does patient have active BEDREST order?: No Is patient medically & hemodynamically stable?: Yes Patient assessed for mobility or mobilized this visit?: Yes - Constitutional Vitals: Temp Pulse Resp BP Pulse Ox 97.8 F 85 18 136/69 98 04/02/18 15:57 04/02/18 15:57 04/02/18 15:57 04/02/18 15:57 04/02/18 16:02 - Attending Attestation I examined this patient and my medical decision-making was reviewed with the Resident Physician Dr. Sanchez. I agree with the documented findings, disposition and treatment plan as described except to the extent set forth below. Ms. Ordoñez is a 88 year old female with past medical history of A-fib on Coumadin, HTN, SC in 2002, CKD-3, and osteoporosis pt had syncoap episode at rest y/d , she went to see her PCP today there she found to have hypoxic and sent to ER for further work up. Pt did mention some orthopnea, FRANCO symptoms from past one month. She also had cough with some URI symptoms a week ago. Pt had seen her PCP who started her on Rocephin + Azithromycin. Now she denied any cough with expectoration. She was admitted in the hospital and started her on IV Lasix 40 mg x 2 doses. Patient stated her symptoms improved. She denied any CP / SOB. Still on 2 lit O2. Her ankle pain also improved. She did have left ankle sprain, X ray ankle did not show any fracture. Pt was evaluated by PT / OT who recommend home health services. She does have mild reactive airway disease and diastolic CHF which caused her hypoxia. She did have home O2 eval done. She required 2 lit O2 continuously. Will arrange for the O2 before she leaves.
--- NOTE | 2018-04-02 12:48 | Physician Discharge Referral ---
Home Health/Hosp Referral Info Transfer to: Home Health Attending Provider: Dr. Morfin Provider in Charge Post Discharge: PCP - Diagnosis (1) Hypoxia Priority: Primary Status: Acute (2) Syncope Priority: Primary Status: Acute (3) Atrial fibrillation Priority: Secondary Status: Chronic (4) Hypertension Priority: Secondary Status: Chronic (5) Acute exacerbation of CHF (congestive heart failure) Priority: Primary Status: Suspected (6) History of recent pneumonia Priority: Secondary Status: Acute (7) UTI (urinary tract infection) Priority: Primary Status: Acute (8) Ankle pain Priority: Primary Status: Acute - Respiratory Orders Smoking Cessation: Smoking cessation has been advised. For more information, call the [place] Tobacco Quit Line at 9-926-PWFF-NOW. - Services Needed Following services are medically necessary services: Physical Therapy, Occupational Therapy - Transfer Medications Prescriptions: Amoxicillin [Amoxil] 500 mg PO BID #5 capsule Furosemide [Lasix] 40 mg PO DAILY #30 tablet Home Medications: Ascorbic Acid [Vitamin C with Danielle Hips] 500 mg PO DAILY 03/29/18 [History] Aspirin [Lo-Dose Aspirin EC] 81 mg PO DAILY 03/29/18 [History] Calcium Carbonate/Vitamin D3 [Calcium 600-Vit D3 400 Tablet] 1 tab PO BID [History] Esomeprazole Magnesium [Nexium] 40 mg PO DAILY 03/29/18 [History] Losartan [Cozaar] 25 mg PO DAILY 03/29/18 [History] Metoprolol Tartrate 25 mg PO BID 03/29/18 [History] Multivit-Min/FA/Lycopen/Lutein [A Thru Z Select Multivit Tab] 1 tab PO DAILY 10/11 [History] Nitroglycerin 0.3 mg SL Q5MIN PRN 03/29/18 [History] Ondansetron [Zofran] 8 mg PO TID 03/29/18 [History] Pramipexole [Mirapex] 0.5 mg PO HS 03/29/18 [History] Warfarin Sodium 1 mg PO MOTUWETH 03/29/18 [History] Warfarin Sodium 2.5 mg PO SUFRSA 03/29/18 [History] amLODIPine [Norvasc] 5 mg PO DAILY 03/29/18 [History] Amoxicillin [Amoxil] 500 mg PO BID #5 capsule 04/02/18 [Rx] Furosemide [Lasix] 40 mg PO DAILY #30 tablet 04/02/18 [Rx] Allergies/Adverse Reactions: 3 Allergy/AdvReac Type Severity Reaction Status Date / Time benzocaine Allergy Difficulty Verified 03/29/18 12:34 Breathing Procaine [From Novocain] Allergy Difficulty Verified 03/29/18 12:35 Breathing Certification: Further, I certify that my clinical findings support that this patient is homebound (i.e. absences from home require considerable and taxing effort and are for medical reasons or tenriism services or infrequently or short duration when for other reasons) because: Homebound Reason: Patient requires assistance of a person or device to safely leave home Attestation: My signature below is to certify that this patient is under my care and that I, or nurse practitioner, or a physician's billing assistant working with me, has a face-to -face encounter with this patient.
[2018-04-02 16:04] VITALS: BP 136/69
[2018-04-02] MEDS ORDERED: *HR* Warfarin 1 MG TABLET PO ONE (18:00)
== END 2018-04-02 18:25 | disposition home or self-care (01) | DRG 291 ==
LOC: EMEROOARM 10:58 → 2ANU 14:40 → SUATTDRO 14:40 → 2ANU 15:40
PROVIDERS: ADMIT Internal Medicine; ATTEND Family Medicine